=== PATIENT | female | born 1985 | race African-American/Black ===

== ENCOUNTER 2022-10-17 11:28 | Inpatient (IN) | payer MEDICAID ==
[~2022-10-17] VITALS: Ht 165.1 cm; Wt 172.7 kg
[~2022-10-17 11:28] MED LIST: ACET-2247 PO; AMLO10TA55 PO; CARV6.2534 PO; GABA600T10 PO; LORA10TA7 PO; MECL-160 PO; SPIR-37 PO
[2022-10-17] MEDS ORDERED: HALOPERIDOL 5 MG TABLET PO PRN (20:00)
[2022-10-17] MEDS ORDERED: LORazepam 2 MG TABLET PO PRN (20:00)
[2022-10-17] MEDS ORDERED: ZOLPIDEM TARTRATE 10 MG TABLET PO PRN (20:00)
[2022-10-17] MEDS ORDERED: HALOPERIDOL LACTATE 5 MG/ML VIAL IM ONE (22:45)
[2022-10-17] MEDS ORDERED: DiphenhydrAMINE HCL 50 MG/ML VIAL IM ONE (22:45)
[2022-10-17] MEDS ORDERED: LORazepam 2 MG/ML VIAL IM ONE (22:45)
[2022-10-17] MEDS ORDERED: LORazepam 2 MG/ML VIAL ONE (22:49)
[2022-10-17] MEDS ORDERED: DiphenhydrAMINE HCL 50 MG/ML VIAL ONE (22:49)
[2022-10-17] MEDS ORDERED: HALOPERIDOL LACTATE 5 MG/ML VIAL ONE (22:49)
[2022-10-17 22:50] VITALS: BP 162/97; PULSE 82; RESP 20; TEMP 98; O2SAT 95
[2022-10-17 23:50] VITALS: RESP 20
[2022-10-18] MEDS ORDERED: ChlorproMAZINE HCL 50 MG/2 ML AMP IM ONE (01:15)
[2022-10-18] MEDS ORDERED: DiphenhydrAMINE HCL 50 MG/ML VIAL IM ONE (01:15)
[2022-10-18 01:36] VITALS: BP 160/92; PULSE 81; RESP 20; TEMP 97.9; O2SAT 98
[2022-10-18 02:05] VITALS: BP 147/88; PULSE 103; RESP 18; TEMP 97.6; O2SAT 98
[2022-10-18] MEDS ORDERED: PNEUMOCOCCAL VACCINE POLYVALENT 0.5 ML VIAL [PPSV23] IM. ONE (03:45)
[2022-10-18] MEDS ORDERED: MAG HYDROX/AL HYDROX/SIMETH ES 30 ML SUSPENSION UDCUP PO PRN (05:15)
[2022-10-18] MEDS ORDERED: PETROLATUM,WHITE 28 GM JELLY TP PRN (05:15)
[2022-10-18] MEDS ORDERED: LOPERAMIDE HCL 2 MG CAPSULE PO PRN (05:15)
[2022-10-18] MEDS ORDERED: DOCUSATE SODIUM 100 MG CAPSULE PO PRN (05:15)
[2022-10-18] MEDS ORDERED: GuaiFENesin/D-METHORPHAN [SUGAR-FREE] 200-20MG/10 ML SYRUP UDCUP PO PRN (05:15)
[2022-10-18] MEDS ORDERED: CloNIDine HCL 0.1 MG TABLET PO PRN (05:15)
[2022-10-18] MEDS ORDERED: ONDANSETRON HCL 4 MG TABLET PO PRN (05:15)
[2022-10-18] MEDS ORDERED: MAGNESIUM HYDROXIDE SUSPENSION 30 ML UDCUP PO PRN (05:15)
[2022-10-18] MEDS ORDERED: ACETAMINOPHEN 325 MG TABLET PO PRN (05:15)
[2022-10-18] MEDS ORDERED: IBUPROFEN 400 MG TABLET PO PRN (05:15)
[2022-10-18] MEDS ORDERED: POTASSIUM CHLORIDE 20 MEQ ER TABLET PO ONE (08:00)
[2022-10-18 08:33] VITALS: BP 171/102; PULSE 80; RESP 18; TEMP 97.2; O2SAT 95
[2022-10-18] MEDS ORDERED: LEVOFLOXACIN 500 MG TABLET PO SCH (09:00)
[2022-10-18] MEDS ORDERED: CARVEDILOL 3.125 MG TABLET PO SCH (09:00)
[2022-10-18] MEDS ORDERED: AmLODIPine BESYLATE 10 MG TABLET PO SCH (09:00)
[2022-10-18] MEDS ORDERED: GABAPENTIN 300 MG CAPSULE PO SCH (09:00)
[2022-10-18] MEDS ORDERED: LEVO750T68 PO ×2 (10:09→11:20)
[2022-10-18] MEDS ORDERED: CARV6 PO (11:20)
[2022-10-18] MEDS ORDERED: AMLO-258 PO (11:20)
[2022-10-18] MEDS ORDERED: SPIRONOLACTONE 25 MG TABLET PO SCH (17:00)
== END 2022-10-18 12:08 | disposition left against medical advice (07) | DRG 751 ==
LOC: B3A 21:53
PROVIDERS: ADMIT Psychiatry & Neurology Child & Adolescent Psychiatry; ATTEND Psychiatry & Neurology Child & Adolescent Psychiatry
DX: F29 Unspecified psychosis not due to a substance or known physiological condition (principal); Z68.44 Body mass index [BMI] 60.0-69.9, adult; F10.10 Alcohol abuse, uncomplicated; Z53.21 Procedure and treatment not carried out due to patient leaving prior to being seen by health care provider; I10 Essential (primary) hypertension; F14.10 Cocaine abuse, uncomplicated; L03.119 Cellulitis of unspecified part of limb; E66.01 Morbid (severe) obesity due to excess calories; Z79.899 Other long term (current) drug therapy
CPT/HCPCS: 87081; J1200; J1630; J2060; J3230

== ENCOUNTER 2022-10-19 20:51 | Emergency (ER) | payer MEDICAID ==
[~2022-10-19] VITALS: Ht 167.6 cm; Wt 136.4 kg
[~2022-10-19 20:51] MED LIST changes: -ACET-2247 PO; +AMLO-258 PO; +CARV6 PO; +LEVO750T68 PO; -MECL-160 PO
[2022-10-19 21:04] VITALS: BP 141/99; PULSE 99; RESP 21; TEMP 98.2
[2022-10-19] MEDS ORDERED: KETOROLAC TROMETHAMINE 30 MG/ML VIAL IM ONE (22:15)
== END 2022-10-19 22:13 | disposition home or self-care (01) ==
LOC: EMS 20:52
DX: L03.115 Cellulitis of right lower limb (principal); R52 Pain, unspecified; I10 Essential (primary) hypertension; F20.9 Schizophrenia, unspecified; F12.90 Cannabis use, unspecified, uncomplicated; E66.01 Morbid (severe) obesity due to excess calories
CPT/HCPCS: 99283; 96372; J1885

== ENCOUNTER 2022-10-21 08:15 | Emergency (ER) | payer MEDICAID ==
[~2022-10-21] VITALS: Ht 175.3 cm; Wt 104.5 kg
[2022-10-21 08:50] VITALS: TEMP 98.3
[2022-10-21 10:48] VITALS: BP 132/80; PULSE 86; RESP 18
[2022-10-21] MEDS ORDERED: TRAZ-252 PO ×3 (18:14→23:33)
== END 2022-10-21 10:58 | disposition home or self-care (01) ==
LOC: EMS 08:18
DX: M79.662 Pain in left lower leg (principal); M79.661 Pain in right lower leg; I10 Essential (primary) hypertension; F20.9 Schizophrenia, unspecified; F43.10 Post-traumatic stress disorder, unspecified; E66.01 Morbid (severe) obesity due to excess calories; F12.90 Cannabis use, unspecified, uncomplicated
CPT/HCPCS: 99283; Z7502

== ENCOUNTER 2022-10-21 13:54 | Emergency (ER) | payer MEDICAID ==
[~2022-10-21] VITALS: Ht 170.2 cm; Wt 159.1 kg
[2022-10-21 14:07] VITALS: TEMP 97.9
[2022-10-21] MEDS ORDERED: TRAZ-252 PO ×3 (18:14→23:33)
[2022-10-21] MEDS ORDERED: TraMADol HCL 50 MG TABLET PO ONE (18:45)
[2022-10-21 18:48] VITALS: BP 148/84; PULSE 84; RESP 16
== END 2022-10-21 18:57 | disposition home or self-care (01) ==
LOC: EMS 13:57
DX: G47.00 Insomnia, unspecified (principal); L03.115 Cellulitis of right lower limb; I10 Essential (primary) hypertension; F20.9 Schizophrenia, unspecified; F12.90 Cannabis use, unspecified, uncomplicated
CPT/HCPCS: 99283

== ENCOUNTER 2022-10-22 13:33 | Inpatient (IN) | payer MEDICAID ==
[~2022-10-22] VITALS: Ht 165.1 cm; Wt 127.3 kg
[~2022-10-22 13:33] MED LIST changes: -AMLO-258 PO; -CARV6 PO; +TRAZ-252 PO
[2022-10-22 14:04] LABS: EOSINOPHILS % (AUTO) 0.3 % (1.0-6.0); HEMATOCRIT 36.7 % (36-46); HEMOGLOBIN 11.7 g/dL (12.0-16.0); LYMPHOCYTES # (AUTO) 3.6 K/uL (1.0-4.8); LYMPHOCYTES % (AUTO) 22.9 % (22.0-44.0); MEAN CORPUSCULAR HEMOGLOBIN 25.8 pg (26.0-34.0); MEAN CORPUSCULAR HGB CONC 31.9 G/dL (31.0-37.0); MEAN CORPUSCULAR VOLUME 81 fL (80-100); MONOCYTES # (AUTO) 1.3 K/uL (0.1-1.0); MONOCYTES % (AUTO) 8.3 % (2.0-9.0); NEUTROPHILS # (AUTO) 10.5 K/uL (1.8-7.7); NEUTROPHILS % (AUTO) 67.5 % (40.0-70.0); PLATELET COUNT (AUTO) 439 K/uL (150-450); RED BLOOD CELL COUNT(AUTO) 4.54 MIL/uL (4.00-5.20); RED CELL DISTRIBUTION WIDTH 16.2 % (11.5-14.5)
[2022-10-22 14:14] LABS: ANION GAP 7 mmol/L (8-16); CALCIUM, TOTAL 8.3 mg/dL (8.8-10.5); CARBON DIOXIDE 26 mmol/L (22-29); CHLORIDE 101 mmol/L (98-107); CREATININE 0.79 mg/dL (0.60-1.30); GLOMERULAR FILTR. RATE CALC > 60 mL/min (>60); GLUCOSE,RANDOM 120 mg/dL (70-110); POTASSIUM 3.7 mmol/L (3.5-5.1); SODIUM SERUM 134 mmol/L (136-145)
[2022-10-22 14:20] LABS: ALANINE AMINOTRANSFERASE 40 U/L (12-78); ALBUMIN 3.2 g/dL (3.4-5.0); ALKALINE PHOSPHATASE 66 U/L (46-116); ASPARTATE AMINOTRANSFERASE 30 U/L (15-37); BILIRUBIN,TOTAL 0.2 mg/dL (0.1-1.0); TOTAL PROTEIN, SERUM 7.2 g/dL (6.4-8.2)
[2022-10-22 14:48] LABS: AMPHET/METH SCREEN,URINE NEGATIVE (NEGATIVE); BARBITURATE SCREEN, URINE NEGATIVE (NEGATIVE); BENZODIAZEPINES SCREEN,URINE NEGATIVE (NEGATIVE); CANNABINOID SCREEN,URINE POSITIVE (NEGATIVE); COCAINE SCREEN,URINE NEGATIVE (NEGATIVE); METHADONE SCREEN, URINE NEGATIVE (NEGATIVE)
[2022-10-22 14:49] LABS: OPIATE SCREEN,URINE POSITIVE (NEGATIVE); PHENCYCLIDINE SCREEN,URINE NEGATIVE (NEGATIVE)
[2022-10-22] MEDS ORDERED: LORazepam 1 MG TABLET PO ONE (15:45)
[2022-10-22] MEDS ORDERED: ZOLPIDEM TARTRATE 10 MG TABLET PO PRN (15:45)
[2022-10-22] MEDS ORDERED: HALOPERIDOL 5 MG TABLET PO ONE (15:45)
[2022-10-22] MEDS ORDERED: DiphenhydrAMINE HCL 25 MG CAPSULE PO ONE ×2 (15:45→16:00)
[2022-10-22] MEDS: ACETAMINOPHEN 500 MG TABLET PO ONE (21:10)
[2022-10-23] MEDS: LORazepam 2 MG TABLET PO PRN (00:04)
[2022-10-23] MEDS: ACETAMINOPHEN 500 MG TABLET PO ONE (01:38)
[2022-10-23 03:08] LABS: COVID AG,FIA SOURCE NASOPHARYNGEAL
[2022-10-23] MEDS ORDERED: LEVOFLOXACIN 250 MG TABLET PO ONE (05:15)
[2022-10-23] MEDS ORDERED: SPIRONOLACTONE 25 MG TABLET PO ONE (05:15)
[2022-10-23] MEDS ORDERED: LORazepam 2 MG/ML VIAL IM ONE (08:30)
[2022-10-23] MEDS ORDERED: HALOPERIDOL LACTATE 5 MG/ML VIAL IM ONE (08:30)
[2022-10-23] MEDS ORDERED: DiphenhydrAMINE HCL 50 MG/ML VIAL IM ONE (08:30)
[2022-10-23] MEDS ORDERED: LORATADINE 10 MG TABLET PO PRN (11:15)
[2022-10-23] MEDS: AmLODIPine BESYLATE 10 MG TABLET PO SCH (11:57)
[2022-10-23] MEDS: CARVEDILOL 6.25 MG TABLET PO SCH ×2 (11:57→17:49)
[2022-10-23] MEDS: SPIRONOLACTONE 25 MG TABLET PO SCH (17:48)
[2022-10-23] MEDS: GABAPENTIN 300 MG CAPSULE PO SCH (17:48)
[2022-10-23] MEDS ORDERED: PETROLATUM,WHITE 28 GM JELLY TP PRN (20:45)
[2022-10-23] MEDS ORDERED: MAG HYDROX/AL HYDROX/SIMETH ES 30 ML SUSPENSION UDCUP PO PRN (20:45)
[2022-10-23] MEDS ORDERED: DOCUSATE SODIUM 100 MG CAPSULE PO PRN (20:45)
[2022-10-23] MEDS ORDERED: BACITRACIN 28 GM OINTMENT TP PRN (20:45)
[2022-10-23] MEDS ORDERED: ALBUTEROL SULFATE HFA 90 MCG/PUFF 8 GM INHALER IH PRN (20:45)
[2022-10-23] MEDS ORDERED: OMEPRAZOLE 20 MG CAPSULE PO PRN (20:45)
[2022-10-23] MEDS ORDERED: MAGNESIUM HYDROXIDE SUSPENSION 30 ML UDCUP PO PRN (20:45)
[2022-10-23] MEDS ORDERED: LOPERAMIDE HCL 2 MG CAPSULE PO PRN (20:45)
[2022-10-23] MEDS ORDERED: CloNIDine HCL 0.1 MG TABLET PO PRN (20:45)
[2022-10-23] MEDS ORDERED: BENZOCAINE/MENTHOL LOZENGE PO PRN (20:45)
[2022-10-23] MEDS: ACETAMINOPHEN 325 MG TABLET PO PRN (21:03)
[2022-10-23 21:11] VITALS: BP 137/89; PULSE 81; RESP 18; TEMP 98.1; O2SAT 97
[2022-10-23] MEDS: ONDANSETRON HCL 4 MG TABLET PO PRN ×2 (22:45→22:51)
[2022-10-24 08:06] VITALS: RESP 18
[2022-10-24] MEDS: AmLODIPine BESYLATE 10 MG TABLET PO SCH (08:06)
[2022-10-24] MEDS: ACETAMINOPHEN 325 MG TABLET PO PRN ×2 (08:06→13:02)
[2022-10-24] MEDS: GABAPENTIN 300 MG CAPSULE PO SCH ×3 (08:06→17:00)
[2022-10-24] MEDS: CARVEDILOL 6.25 MG TABLET PO SCH ×2 (08:06→17:00)
[2022-10-24] MEDS: LEVOFLOXACIN 750 MG TABLET PO SCH (08:06)
[2022-10-24] MEDS: SPIRONOLACTONE 25 MG TABLET PO SCH ×2 (08:06→17:00)
[2022-10-24 08:34] VITALS: BP 157/85; PULSE 87; RESP 18; TEMP 97.5; O2SAT 97
[2022-10-24 09:06] VITALS: RESP 18
[2022-10-24 13:02] VITALS: RESP 18
[2022-10-24 14:02] VITALS: RESP 18
[2022-10-24] MEDS ORDERED: ChlorproMAZINE HCL 50 MG/2 ML AMP IM ONE (16:45)
[2022-10-24] MEDS ORDERED: LORazepam 2 MG/ML VIAL IM ONE (16:45)
[2022-10-24] MEDS: QUEtiapine FUMARATE 200 MG TABLET PO SCH (17:00)
[2022-10-24] MEDS: LITHIUM CARBONATE 300 MG CAPSULE PO SCH (17:00)
[2022-10-24] MEDS: DIVALPROEX SODIUM 500 MG DR TABLET PO SCH (17:00)
[2022-10-24 20:23] VITALS: BP 129/76; PULSE 90; RESP 18; TEMP 97.6; O2SAT 98
[2022-10-25] VITALS (8 sets, daily range): BP systolic 118–140; BP diastolic 68–78; PULSE 80–90; RESP 15–19; TEMP 97.6–98; O2SAT 91–98
[2022-10-25] MEDS: ACETAMINOPHEN 325 MG TABLET PO PRN ×2 (03:14→21:30)
[2022-10-25] MEDS ORDERED: PNEUMOCOCCAL VACCINE POLYVALENT 0.5 ML VIAL [PPSV23] IM. ONE (04:15)
[2022-10-25] MEDS: LEVOFLOXACIN 750 MG TABLET PO SCH (08:01)
[2022-10-25] MEDS: GABAPENTIN 300 MG CAPSULE PO SCH ×3 (08:01→16:36)
[2022-10-25] MEDS: AmLODIPine BESYLATE 10 MG TABLET PO SCH (08:02)
[2022-10-25] MEDS: SPIRONOLACTONE 25 MG TABLET PO SCH ×2 (08:02→16:36)
[2022-10-25] MEDS: CARVEDILOL 6.25 MG TABLET PO SCH ×2 (08:02→16:36)
[2022-10-25] MEDS: DIVALPROEX SODIUM 500 MG DR TABLET PO SCH ×2 (08:21→16:43)
[2022-10-25] MEDS: LITHIUM CARBONATE 300 MG CAPSULE PO SCH ×2 (08:21→16:43)
[2022-10-25] MEDS: QUEtiapine FUMARATE 200 MG TABLET PO SCH ×2 (08:22→16:43)
[2022-10-25] MEDS: ONDANSETRON HCL 4 MG TABLET PO PRN (09:07)
[2022-10-25] MEDS: IBUPROFEN 600 MG TABLET PO PRN (16:36)
[2022-10-25] MEDS: DiphenhydrAMINE HCL 50 MG CAPSULE PO PRN (20:47)
[2022-10-26] MEDS: IBUPROFEN 600 MG TABLET PO PRN ×3 (02:34→22:27)
[2022-10-26] MEDS: HALOPERIDOL 5 MG TABLET PO PRN ×2 (03:04→22:27)
[2022-10-26] MEDS: LORazepam 2 MG TABLET PO PRN ×2 (03:04→22:27)
[2022-10-26] MEDS ORDERED: LORazepam 2 MG/ML VIAL IM ONE ×3 (04:30→16:15)
[2022-10-26] MEDS ORDERED: ChlorproMAZINE HCL 50 MG/2 ML AMP IM ONE ×2 (04:30→16:15)
[2022-10-26] MEDS ORDERED: DiphenhydrAMINE HCL 50 MG/ML VIAL IM ONE (08:00)
[2022-10-26] MEDS ORDERED: HALOPERIDOL LACTATE 5 MG/ML VIAL IM ONE (08:00)
[2022-10-26] MEDS: AmLODIPine BESYLATE 10 MG TABLET PO SCH (08:58)
[2022-10-26] MEDS: LEVOFLOXACIN 750 MG TABLET PO SCH (09:00)
[2022-10-26] MEDS: DIVALPROEX SODIUM 500 MG DR TABLET PO SCH ×2 (09:00→16:37)
[2022-10-26] MEDS: LITHIUM CARBONATE 300 MG CAPSULE PO SCH ×2 (09:00→16:37)
[2022-10-26] MEDS: SPIRONOLACTONE 25 MG TABLET PO SCH ×2 (09:00→16:32)
[2022-10-26] MEDS: CARVEDILOL 6.25 MG TABLET PO SCH ×2 (09:00→16:32)
[2022-10-26] MEDS: QUEtiapine FUMARATE 200 MG TABLET PO SCH ×2 (09:00→16:38)
[2022-10-26] MEDS: GABAPENTIN 300 MG CAPSULE PO SCH ×4 (09:00→16:33)
[2022-10-26 09:13] VITALS: BP 144/92; PULSE 93; RESP 18; TEMP 98; O2SAT 98
[2022-10-26 10:09] VITALS: RESP 18; O2SAT 98
[2022-10-26] MEDS: ACETAMINOPHEN 325 MG TABLET PO PRN (10:09)
[2022-10-26 11:09] VITALS: RESP 17
[2022-10-26 16:09] VITALS: BP 144/89; PULSE 91; RESP 18; TEMP 97.3; O2SAT 96
[2022-10-26] MEDS ORDERED: ChlorproMAZINE HCL 50 MG/2 ML AMP ONE (16:11)
[2022-10-26 17:09] VITALS: RESP 17
[2022-10-26 21:23] VITALS: RESP 18; TEMP 98; O2SAT 97
[2022-10-26] MEDS: DiphenhydrAMINE HCL 50 MG CAPSULE PO PRN (22:28)
[2022-10-27] MEDS: ACETAMINOPHEN 325 MG TABLET PO PRN ×3 (02:34→14:45)
[2022-10-27 02:35] VITALS: BP 127/82; RESP 18
[2022-10-27 03:35] VITALS: RESP 18; TEMP 98; O2SAT 98
[2022-10-27] MEDS ORDERED: LORazepam 2 MG/ML VIAL IM ONE (04:15)
[2022-10-27] MEDS ORDERED: ChlorproMAZINE HCL 50 MG/2 ML AMP IM ONE (04:15)
[2022-10-27 08:52] VITALS: BP 149/100; PULSE 100; RESP 16; TEMP 97.5; O2SAT 95
[2022-10-27] MEDS: LITHIUM CARBONATE 300 MG CAPSULE PO SCH ×2 (09:00→16:14)
[2022-10-27] MEDS: QUEtiapine FUMARATE 200 MG TABLET PO SCH ×2 (09:00→16:14)
[2022-10-27] MEDS: DIVALPROEX SODIUM 500 MG DR TABLET PO SCH ×2 (09:00→16:15)
[2022-10-27] MEDS: CARVEDILOL 6.25 MG TABLET PO SCH ×2 (09:03→16:10)
[2022-10-27] MEDS: SPIRONOLACTONE 25 MG TABLET PO SCH ×2 (09:03→16:11)
[2022-10-27] MEDS: AmLODIPine BESYLATE 10 MG TABLET PO SCH (09:05)
[2022-10-27] MEDS: GABAPENTIN 300 MG CAPSULE PO SCH ×3 (09:05→16:11)
[2022-10-27] MEDS: LEVOFLOXACIN 750 MG TABLET PO SCH (09:05)
[2022-10-27] MEDS ORDERED: QUET200T PO ×2 (11:33→11:37)
[2022-10-27] MEDS ORDERED: LITH300C3 PO (11:35)
[2022-10-27] MEDS ORDERED: DIVA-112 PO (11:35)
[2022-10-27] MEDS: DiphenhydrAMINE HCL 50 MG CAPSULE PO PRN (16:05)
== END 2022-10-27 17:24 | disposition home or self-care (01) | DRG 750 ==
LOC: EMS 13:36 → B3A 10-23 14:24 → B2S 10-24 17:54
PROVIDERS: ADMIT Psychiatry & Neurology Psychiatry; ATTEND Psychiatry & Neurology Psychiatry
DX: F25.9 Schizoaffective disorder, unspecified (principal); E28.2 Polycystic ovarian syndrome; F43.10 Post-traumatic stress disorder, unspecified; I10 Essential (primary) hypertension; G47.00 Insomnia, unspecified; K59.00 Constipation, unspecified; Z20.822 Contact with and (suspected) exposure to COVID-19; E66.01 Morbid (severe) obesity due to excess calories; F12.10 Cannabis abuse, uncomplicated; F41.9 Anxiety disorder, unspecified; F32.A Depression, unspecified; Z79.899 Other long term (current) drug therapy; Z68.42 Body mass index [BMI] 45.0-49.9, adult
CPT/HCPCS: 80053; 80307; 85025; 87081; G0480; J1200; J1630; J2060; J3230; Q0162; Q9967

== ENCOUNTER 2022-10-27 19:23 | Emergency (ER) | payer MEDICAID ==
[~2022-10-27 19:23] MED LIST changes: +DIVA-112 PO; +LITH300C3 PO; +QUET200T PO
== END 2022-10-27 23:14 | disposition left against medical advice (07) ==
LOC: EMS 19:24
DX: R44.3 Hallucinations, unspecified (principal); Z53.21 Procedure and treatment not carried out due to patient leaving prior to being seen by health care provider
CPT/HCPCS: 99281; Z7502

== ENCOUNTER 2023-06-20 20:29 | Emergency (ER) | payer MEDICAID ==
[~2023-06-20] VITALS: Ht 167.6 cm; Wt 220.0 kg
[~2023-06-20 20:29] MED LIST changes: -TRAZ-252 PO
[2023-06-20 20:59] VITALS: BP 180/100; PULSE 110; RESP 18; TEMP 98.7
== END 2023-06-20 21:35 | disposition left against medical advice (07) ==
LOC: EMS 20:31
DX: R06.02 Shortness of breath (principal); Z53.21 Procedure and treatment not carried out due to patient leaving prior to being seen by health care provider
CPT/HCPCS: 99281; Z7502

== ENCOUNTER 2023-07-01 22:07 | Emergency (ER) | payer MEDICAID ==
[~2023-07-01 22:07] MED LIST changes: +CELE-146 PO; +DULO-113 PO; +MECL-302 PO; +OMEP20CA12 PO
== END 2023-07-02 04:23 | disposition left against medical advice (07) ==
LOC: EMS 22:07
DX: Z53.21 Procedure and treatment not carried out due to patient leaving prior to being seen by health care provider (principal)

== ENCOUNTER 2023-07-02 08:50 | Emergency (ER) | payer MEDICAID ==
[~2023-07-02] VITALS: Ht 167.6 cm; Wt 115.9 kg
[2023-07-02 09:13] VITALS: BP 180/90; PULSE 88; RESP 18; TEMP 98.4
== END 2023-07-02 12:09 | disposition left against medical advice (07) ==
LOC: EMS 08:50
DX: M25.473 Effusion, unspecified ankle (principal); Z53.21 Procedure and treatment not carried out due to patient leaving prior to being seen by health care provider
CPT/HCPCS: 99281; Z7502

== ENCOUNTER 2023-07-02 13:48 | Emergency (ER) | payer MEDICAID ==
[~2023-07-02] VITALS: Ht 165.1 cm; Wt 136.4 kg
[2023-07-02 13:59] VITALS: BP 165/92; PULSE 100; RESP 18; TEMP 98.8
== END 2023-07-02 15:20 | disposition left against medical advice (07) ==
LOC: EMS 14:06
DX: N94.89 Other specified conditions associated with female genital organs and menstrual cycle (principal); M54.9 Dorsalgia, unspecified; R42 Dizziness and giddiness; Z53.21 Procedure and treatment not carried out due to patient leaving prior to being seen by health care provider
CPT/HCPCS: 99281; Z7502

== ENCOUNTER 2023-07-08 03:37 | Emergency (ER) | payer MEDICAID ==
[~2023-07-08] VITALS: Ht 167.6 cm; Wt 176.1 kg
[~2023-07-08 03:37] MED LIST changes: -LEVO750T68 PO
[2023-07-08 03:43] VITALS: BP 167/61; PULSE 99; RESP 20; TEMP 97.1
[2023-07-08] MEDS ORDERED: FURO-152 PO (03:57)
[2023-07-09] MEDS ORDERED: NAPR-1025 PO (06:43)
[2023-07-09] MEDS ORDERED: ALBU18HF12 PO (06:43)
[2023-07-09] MEDS ORDERED: GABA-1181 PO (06:43)
[2023-07-09] MEDS ORDERED: DOXY100C5 PO (06:43)
[2023-07-09] MEDS ORDERED: OLAN7.5T18 PO (06:43)
[2023-07-09] MEDS ORDERED: BACL5TAB PO (06:43)
[2023-07-09] MEDS ORDERED: PRED-554 PO (06:43)
[2023-07-09] MEDS ORDERED: CEPH500C2 PO (06:43)
== END 2023-07-08 04:00 | disposition home or self-care (01) ==
LOC: EMS 03:38 → MERGE 03:38 → EMS 04:00
DX: R60.0 Localized edema (principal); I10 Essential (primary) hypertension; F43.10 Post-traumatic stress disorder, unspecified; Z91.011 Allergy to milk products; Z76.0 Encounter for issue of repeat prescription
CPT/HCPCS: 99281; Z7502

== ENCOUNTER 2023-07-08 08:49 | Emergency (ER) | payer MEDICAID ==
[~2023-07-08] VITALS: Ht 167.6 cm; Wt 176.0 kg
[~2023-07-08 08:49] MED LIST changes: +FURO-152 PO
[2023-07-08 09:06] VITALS: BP 114/117; PULSE 99; RESP 20; TEMP 97.7
[2023-07-09] MEDS ORDERED: BACL5TAB PO (06:43)
[2023-07-09] MEDS ORDERED: PRED-554 PO (06:43)
[2023-07-09] MEDS ORDERED: OLAN7.5T18 PO (06:43)
[2023-07-09] MEDS ORDERED: DOXY100C5 PO (06:43)
[2023-07-09] MEDS ORDERED: NAPR-1025 PO (06:43)
[2023-07-09] MEDS ORDERED: ALBU18HF12 PO (06:43)
[2023-07-09] MEDS ORDERED: CEPH500C2 PO (06:43)
[2023-07-09] MEDS ORDERED: GABA-1181 PO (06:43)
== END 2023-07-08 09:18 | disposition home or self-care (01) ==
LOC: EMS 08:49
DX: R51.9 Headache, unspecified (principal); Z53.21 Procedure and treatment not carried out due to patient leaving prior to being seen by health care provider
CPT/HCPCS: 99281; Z7502

== ENCOUNTER 2023-07-09 06:23 | Emergency (ER) | payer MEDICAID ==
[~2023-07-09] VITALS: Ht 167.6 cm; Wt 172.0 kg
[2023-07-09 06:37] VITALS: BP 125/78; PULSE 85; RESP 18; TEMP 98.2
[2023-07-09] MEDS ORDERED: NAPR-1025 PO (06:43)
[2023-07-09] MEDS ORDERED: ALBU18HF12 PO (06:43)
[2023-07-09] MEDS ORDERED: PRED-554 PO (06:43)
[2023-07-09] MEDS ORDERED: BACL5TAB PO (06:43)
[2023-07-09] MEDS ORDERED: OLAN7.5T18 PO (06:43)
[2023-07-09] MEDS ORDERED: GABA-1181 PO (06:43)
[2023-07-09] MEDS ORDERED: DOXY100C5 PO (06:43)
[2023-07-09] MEDS ORDERED: CEPH500C2 PO (06:43)
[2023-07-09] MEDS: KETOROLAC TROMETHAMINE 60 MG/2 ML VIAL IM ONE (07:41)
[2023-07-09] MEDS: LORazepam 1 MG TABLET PO ONE (07:41)
== END 2023-07-09 08:16 | disposition home or self-care (01) ==
LOC: EMS 06:58 → MERGE 06:58 → EMS 08:16
DX: S29.012A Strain of muscle and tendon of back wall of thorax, initial encounter (principal); M79.671 Pain in right foot; I10 Essential (primary) hypertension; F12.90 Cannabis use, unspecified, uncomplicated; Z91.011 Allergy to milk products; Z88.8 Allergy status to other drugs, medicaments and biological substances; V89.2XXA Person injured in unspecified motor-vehicle accident, traffic, initial encounter; Y93.89 Activity, other specified; Y92.89 Other specified places as the place of occurrence of the external cause; Y99.8 Other external cause status
CPT/HCPCS: 99283; 73630; 96372; J1885

== ENCOUNTER 2023-07-12 12:17 | Inpatient (IN) | payer MEDICAID ==
[~2023-07-12] VITALS: Ht 167.6 cm; Wt 180.3 kg
[~2023-07-12 12:17] MED LIST changes: +ALBU18HF12 PO; +BACL5TAB PO; +CEPH500C2 PO; +DOXY100C5 PO; +GABA-1181 PO; +NAPR-1025 PO; +OLAN7.5T18 PO; +PRED-554 PO
[2023-07-12 14:34] LABS: EOSINOPHILS % (AUTO) 0.6 % (1.0-6.0); HEMATOCRIT 39.7 % (36-46); HEMOGLOBIN 12.4 g/dL (12.0-16.0); LYMPHOCYTES # (AUTO) 5.6 K/uL (1.0-4.8); LYMPHOCYTES % (AUTO) 34.6 % (22.0-44.0); MEAN CORPUSCULAR HEMOGLOBIN 23.5 pg (26.0-34.0); MEAN CORPUSCULAR HGB CONC 31.3 G/dL (31.0-37.0); MEAN CORPUSCULAR VOLUME 75 fL (80-100); MONOCYTES # (AUTO) 1.4 K/uL (0.1-1.0); MONOCYTES % (AUTO) 8.8 % (2.0-9.0); PLATELET COUNT (AUTO) 519 K/uL (150-450); RED BLOOD CELL COUNT(AUTO) 5.29 MIL/uL (4.00-5.20); RED CELL DISTRIBUTION WIDTH 17.4 % (11.5-14.5); WHITE BLOOD COUNT (AUTO) 16.3 K/uL (4.5-11.0)
[2023-07-12] MEDS ORDERED: OLAN7.5T22 PO (14:36)
[2023-07-12] MEDS ORDERED: FURO20 PO (14:36)
[2023-07-12] MEDS ORDERED: BACL10TA PO (14:36)
[2023-07-12] MEDS ORDERED: CYCL-448 PO (14:36)
[2023-07-12 14:48] LABS: ANION GAP 8 mmol/L (8-16); CALCIUM, TOTAL 8.5 mg/dL (8.8-10.5); CARBON DIOXIDE 30 mmol/L (22-29); CHLORIDE 103 mmol/L (98-107); CREATININE 0.75 mg/dL (0.60-1.30); GLOMERULAR FILTR. RATE CALC > 60 mL/min (>60); GLUCOSE,RANDOM 184 mg/dL (70-110); POTASSIUM 3.5 mmol/L (3.5-5.1); SODIUM SERUM 141 mmol/L (136-145); UREA NITROGEN, BLOOD 16 mg/dL (7-18)
[2023-07-12 14:50] LABS: ALANINE AMINOTRANSFERASE 50 U/L (12-78); ALBUMIN 3.3 g/dL (3.4-5.0); ALKALINE PHOSPHATASE 85 U/L (46-116); ASPARTATE AMINOTRANSFERASE 30 U/L (15-37); BILIRUBIN,TOTAL 0.3 mg/dL (0.1-1.0); TOTAL PROTEIN, SERUM 7.9 g/dL (6.4-8.2)
[2023-07-12] MEDS: KETOROLAC TROMETHAMINE 30 MG/ML VIAL IM ONE (14:54)
[2023-07-12 15:00] LABS: COVID AG,FIA SOURCE NASAL SWAB
[2023-07-12 15:11] LABS: ALCOHOL, BLOOD (SERUM) < 3 mg/dL (0-10)
[2023-07-12 15:32] LABS: SARS-COV2 (COVID) ANTIGEN,FIA Negative (Negative)
[2023-07-12 18:14] LABS: APPEARANCE,URINE CLEAR (CLEAR); BILIRUBIN,URINE NEGATIVE (NEGATIVE); COLOR,URINE LIGHT YELLOW (YELLOW); GLUCOSE, URINE (UA) NEGATIVE (NEGATIVE); KETONES,URINE NEGATIVE (NEGATIVE); LEUKOCYTE ESTERASE ,URINE NEGATIVE (NEGATIVE); NITRATE,URINE NEGATIVE (NEGATIVE); OCCULT BLOOD,URINE NEGATIVE (NEGATIVE); PROTEIN,URINE TRACE mg/dL (NEGATIVE); SPECIFIC GRAVITIY, URINE 1.025 (1.003-1.030); UROBILINOGEN,URINE <=1.0 mg/dL (<=1.0)
[2023-07-12 18:20] LABS: ALCOHOL, URINE DRUG SCREEN NEGATIVE (NEGATIVE); AMPHET/METH SCREEN,URINE NEGATIVE (NEGATIVE); BARBITURATE SCREEN, URINE NEGATIVE (NEGATIVE); BENZODIAZEPINES SCREEN,URINE NEGATIVE (NEGATIVE); CANNABINOID SCREEN,URINE POSITIVE (NEGATIVE); COCAINE SCREEN,URINE NEGATIVE (NEGATIVE); METHADONE SCREEN, URINE NEGATIVE (NEGATIVE); OPIATE SCREEN,URINE NEGATIVE (NEGATIVE); PHENCYCLIDINE SCREEN,URINE NEGATIVE (NEGATIVE)
[2023-07-12] MEDS: ACETAMINOPHEN 500 MG TABLET PO ONE (18:34)
[2023-07-12] MEDS: OLANZapine 5 MG TABLET PO ONE (23:03)
[2023-07-13] MEDS: ZOLPIDEM TARTRATE 10 MG TABLET PO PRN (00:23)
[2023-07-13] MEDS: LORazepam 2 MG TABLET PO PRN (00:23)
[2023-07-13] MEDS ORDERED: CYCLOBENZAPRINE HCL 10 MG TABLET ONE (02:38)
[2023-07-13] MEDS: CYCLOBENZAPRINE HCL 10 MG TABLET PO ONE ×2 (02:41→09:54)
[2023-07-13] MEDS: HALOPERIDOL 5 MG TABLET PO PRN (07:15)
[2023-07-13] MEDS: ACETAMINOPHEN 500 MG TABLET PO ONE (09:17)
[2023-07-13] MEDS: AmLODIPine BESYLATE 10 MG TABLET PO SCH (11:17)
[2023-07-13] MEDS: CEPHALEXIN MONOHYDRATE 500 MG CAPSULE PO SCH (11:18)
[2023-07-13] MEDS: CARVEDILOL 6.25 MG TABLET PO SCH (11:18)
[2023-07-13] MEDS: DOXYCYCLINE HYCLATE 100 MG TABLET PO SCH (11:18)
[2023-07-13] MEDS: FUROSEMIDE 20 MG TABLET PO SCH (11:18)
[2023-07-13] MEDS ORDERED: HALOPERIDOL 5 MG TABLET PO PRN (12:15)
[2023-07-13] MEDS ORDERED: BENZOCAINE/MENTHOL LOZENGE PO PRN (20:45)
[2023-07-13] MEDS ORDERED: MAGNESIUM HYDROXIDE SUSPENSION 30 ML UDCUP PO PRN (20:45)
[2023-07-13] MEDS ORDERED: ALBUTEROL SULFATE HFA 90 MCG/PUFF 8 GM INHALER IH PRN (20:45)
[2023-07-13] MEDS ORDERED: MAG HYDROX/ALUMINUM HYD/SIMETH ES 30 ML SUSPENSION UDCUP PO PRN (20:45)
[2023-07-13] MEDS ORDERED: BACITRACIN 28 GM OINTMENT TP PRN (20:45)
[2023-07-13] MEDS ORDERED: PETROLATUM,WHITE 28 GM JELLY TP PRN (20:45)
[2023-07-13] MEDS ORDERED: DOCUSATE SODIUM 100 MG CAPSULE PO PRN (20:45)
[2023-07-13 22:07] VITALS: RESP 18
[2023-07-13] MEDS: ACETAMINOPHEN 325 MG TABLET PO PRN (22:07)
[2023-07-14] MEDS: IBUPROFEN 600 MG TABLET PO PRN (00:57)
[2023-07-14 08:46] VITALS: BP 157/90; PULSE 92; RESP 19; TEMP 98.1; O2SAT 96
[2023-07-14] MEDS: GABAPENTIN 300 MG CAPSULE PO SCH (10:02)
[2023-07-14] MEDS ORDERED: MECLIZINE HCL 25 MG TABLET PO PRN (10:15)
[2023-07-14] MEDS ORDERED: LOPERAMIDE HCL 2 MG CAPSULE PO PRN (10:30)
[2023-07-14] MEDS ORDERED: LORATADINE 10 MG TABLET PO PRN (10:30)
[2023-07-14] MEDS: CELECOXIB 100 MG CAPSULE PO SCH (12:06)
[2023-07-14] MEDS: CARVEDILOL 6.25 MG TABLET PO SCH (12:06)
[2023-07-14] MEDS: BACLOFEN 10 MG TABLET PO SCH (14:09)
[2023-07-14] MEDS: LURASIDONE HCL 80 MG TABLET PO SCH (17:48)
[2023-07-14] MEDS: CYCLOBENZAPRINE HCL 10 MG TABLET PO SCH (21:13)
[2023-07-14 21:14] VITALS: BP 153/82; PULSE 86; RESP 18; TEMP 98; O2SAT 96
[2023-07-14 22:30] VITALS: PULSE 85; RESP 18; O2SAT 97
[2023-07-15 01:50] VITALS: BP 160/92; PULSE 96; RESP 2; RESP 20; TEMP 97.6; O2SAT 98
[2023-07-15] MEDS: KETOROLAC TROMETHAMINE 30 MG/ML VIAL IM PRN (01:55)
[2023-07-15 05:10] VITALS: BP 155/88; PULSE 83; RESP 18; TEMP 97.8; O2SAT 98
[2023-07-15] MEDS: TraMADol HCL 50 MG TABLET PO PRN (05:16)
[2023-07-15 06:16] VITALS: RESP 17
[2023-07-15] MEDS: OMEPRAZOLE 20 MG CAPSULE PO PRN (06:46)
[2023-07-15 07:03] LABS: BASOPHILS % (AUTO) 0.6 % (0.0-2.0); EOSINOPHILS % (AUTO) 0.7 % (1.0-6.0); HEMATOCRIT 36.9 % (36-46); HEMOGLOBIN 11.6 g/dL (12.0-16.0); LYMPHOCYTES # (AUTO) 5.2 K/uL (1.0-4.8); LYMPHOCYTES % (AUTO) 31.4 % (22.0-44.0); MEAN CORPUSCULAR HEMOGLOBIN 23.3 pg (26.0-34.0); MEAN CORPUSCULAR HGB CONC 31.4 G/dL (31.0-37.0); MEAN CORPUSCULAR VOLUME 74 fL (80-100); MONOCYTES % (AUTO) 5.8 % (2.0-9.0); NEUTROPHILS # (AUTO) 10.2 K/uL (1.8-7.7); NEUTROPHILS % (AUTO) 61.5 % (40.0-70.0); PLATELET COUNT (AUTO) 457 K/uL (150-450); RED BLOOD CELL COUNT(AUTO) 4.97 MIL/uL (4.00-5.20); RED CELL DISTRIBUTION WIDTH 17.5 % (11.5-14.5); WHITE BLOOD COUNT (AUTO) 16.7 K/uL (4.5-11.0)
[2023-07-15 07:30] LABS: ALANINE AMINOTRANSFERASE 53 U/L (12-78); ALBUMIN 3.1 g/dL (3.4-5.0); ALKALINE PHOSPHATASE 86 U/L (46-116); ANION GAP 10 mmol/L (8-16); ASPARTATE AMINOTRANSFERASE 34 U/L (15-37); BILIRUBIN,TOTAL 0.6 mg/dL (0.1-1.0); CALCIUM, TOTAL 8.3 mg/dL (8.8-10.5); CARBON DIOXIDE 24 mmol/L (22-29); CHLORIDE 99 mmol/L (98-107); GLOMERULAR FILTR. RATE CALC > 60 mL/min (>60); GLUCOSE,RANDOM 107 mg/dL (70-110); PHOSPHORUS 3.9 mg/dL (2.5-4.9); POTASSIUM 3.5 mmol/L (3.5-5.1); SODIUM SERUM 133 mmol/L (136-145); TOTAL PROTEIN, SERUM 7.5 g/dL (6.4-8.2); UREA NITROGEN, BLOOD 10 mg/dL (7-18)
[2023-07-15 07:35] LABS: CHOL/HDL RATIO 3.2 (3.9-5.7)
[2023-07-15 07:37] LABS: HEMOGLOBIN A1C 6.5 % (3.8-5.6)
[2023-07-15 10:58] LABS: RBC MORPHOLOGY COMMENT ABNORMAL RBC MORPH
[2023-07-15 11:10] VITALS: BP 166/89; PULSE 89; RESP 18; TEMP 97.3; O2SAT 98
[2023-07-15] MEDS ORDERED: CELE100 PO (15:42)
[2023-07-15] MEDS ORDERED: LURA80TA2 PO (15:48)
== END 2023-07-15 16:20 | disposition home or self-care (01) | DRG 750 ==
LOC: EMS 12:17 → 3EI 07-13 17:12
PROVIDERS: ADMIT Psychiatry & Neurology Psychiatry; ATTEND Psychiatry & Neurology Psychiatry
DX: F25.1 Schizoaffective disorder, depressive type (principal); R45.851 Suicidal ideations; L03.115 Cellulitis of right lower limb; E78.5 Hyperlipidemia, unspecified; G89.29 Other chronic pain; I10 Essential (primary) hypertension; F32.9 Major depressive disorder, single episode, unspecified; F41.9 Anxiety disorder, unspecified; K21.9 Gastro-esophageal reflux disease without esophagitis; Z20.822 Contact with and (suspected) exposure to COVID-19; G47.00 Insomnia, unspecified; L03.116 Cellulitis of left lower limb; K59.00 Constipation, unspecified; E66.01 Morbid (severe) obesity due to excess calories; Z68.44 Body mass index [BMI] 60.0-69.9, adult; Z79.899 Other long term (current) drug therapy
CPT/HCPCS: 80053; 80061; 80307; 81003; 83036; 83735; 84100; 84703; 85025; 87081; 94660; 99285; G0480; J1885

== ENCOUNTER 2023-11-23 01:04 | Emergency (ER) | payer MEDICAID ==
[~2023-11-23] VITALS: Ht 167.6 cm; Wt 165.0 kg
[~2023-11-23 01:04] MED LIST changes: -ALBU18HF12 PO; +BACL10TA PO; -BACL5TAB PO; -CELE-146 PO; +CELE100 PO; +CYCL-448 PO; -DIVA-112 PO; -DULO-113 PO; -FURO-152 PO; +FURO20 PO; -GABA-1181 PO; -LITH300C3 PO; -LORA10TA7 PO; +LURA80TA2 PO; -MECL-302 PO; -NAPR-1025 PO; -OLAN7.5T18 PO; -OMEP20CA12 PO; -PRED-554 PO; -QUET200T PO; -SPIR-37 PO
[2023-11-23 01:17] VITALS: TEMP 98.3
[2023-11-23] MEDS ORDERED: SULF-261 PO (01:45)
[2023-11-23] MEDS ORDERED: CELE200 PO (01:45)
[2023-11-23] MEDS ORDERED: HYDR-4527 PO (01:45)
[2023-11-23] MEDS: KETOROLAC TROMETHAMINE 60 MG/2 ML VIAL IM ONE (02:01)
[2023-11-23 05:30] VITALS: BP 137/75; PULSE 88; RESP 18
[2023-11-25] MEDS ORDERED: CARV12.530 PO (15:40)
== END 2023-11-23 06:14 | disposition home or self-care (01) ==
LOC: EMS 01:04
DX: L03.115 Cellulitis of right lower limb (principal); M54.31 Sciatica, right side; I10 Essential (primary) hypertension; F12.90 Cannabis use, unspecified, uncomplicated; Z91.011 Allergy to milk products; Z88.8 Allergy status to other drugs, medicaments and biological substances
CPT/HCPCS: 99283; 96372; J1885

== ENCOUNTER 2023-11-24 13:20 | Emergency (ER) | payer MEDICAID ==
[~2023-11-24] VITALS: Ht 162.6 cm; Wt 109.1 kg
[~2023-11-24 13:20] MED LIST changes: +CELE200 PO; +HYDR-4527 PO; +SULF-261 PO
[2023-11-24 13:34] VITALS: BP 137/95; PULSE 70; RESP 18; TEMP 98
[2023-11-24] MEDS: DEXAMETHASONE SOD PHOS 4 MG/ML 5 ML VIAL IM ONE (14:50)
[2023-11-25] MEDS ORDERED: CARV12.530 PO (15:40)
[2023-11-27] MEDS ORDERED: DOXY-354 PO (12:50)
[2023-11-27] MEDS ORDERED: MECL-302 PO (12:50)
[2023-11-27] MEDS ORDERED: OLAN5TAB52 PO (12:50)
== END 2023-11-24 15:14 | disposition home or self-care (01) ==
LOC: EMS 13:20
DX: L03.115 Cellulitis of right lower limb (principal); M54.31 Sciatica, right side; I10 Essential (primary) hypertension; F20.9 Schizophrenia, unspecified; F12.90 Cannabis use, unspecified, uncomplicated
CPT/HCPCS: 99283; 96372; J1100

== ENCOUNTER 2023-12-18 16:46 | Emergency (ER) | payer MEDICAID ==
[~2023-12-18] VITALS: Ht 165.1 cm; Wt 150.0 kg
[~2023-12-18 16:46] MED LIST changes: -AMLO10TA55 PO; -BACL10TA PO; +CARV12.530 PO; -CARV6.2534 PO; -CELE100 PO; +CEPH-558 PO; -CEPH500C2 PO; -CYCL-448 PO; +DOXY-354 PO; -DOXY100C5 PO; -FURO20 PO; -GABA600T10 PO; -LURA80TA2 PO; +MECL-302 PO; +OLAN5TAB52 PO; +ZOLP-162 PO
[2023-12-18 16:50] VITALS: TEMP 98
[2023-12-18 21:20] VITALS: BP 131/76; PULSE 72; RESP 18; O2SAT 99
[2023-12-18] MEDS ORDERED: ZIPRASIDONE HCL 40 MG CAPSULE PO ONE (22:45)
[2023-12-18] MEDS: LORazepam 1 MG TABLET PO ONE (23:35)
[2023-12-18] MEDS: ZIPRASIDONE HCL 20 MG CAPSULE PO ONE (23:36)
== END 2023-12-19 00:06 | disposition home or self-care (01) ==
LOC: EMS 16:48
DX: F25.1 Schizoaffective disorder, depressive type (principal); G47.00 Insomnia, unspecified; F41.9 Anxiety disorder, unspecified; I10 Essential (primary) hypertension; F12.90 Cannabis use, unspecified, uncomplicated; Z91.011 Allergy to milk products; Z88.6 Allergy status to analgesic agent
CPT/HCPCS: 99283

== ENCOUNTER → 2024-06-12 | Emergency (ER) | payer MEDICAID ==
[~2024-06-12] VITALS: Ht 167.6 cm; Wt 147.7 kg
[2024-06-12 02:25] VITALS: BP 144/105; PULSE 105; RESP 18; TEMP 98.7; O2SAT 98
== END | disposition left against medical advice (07) ==
LOC: EMS 02:19
DX: G47.00 Insomnia, unspecified (principal); Z53.21 Procedure and treatment not carried out due to patient leaving prior to being seen by health care provider

== ENCOUNTER 2024-06-22 04:01 | Emergency (ER) | payer MEDICAID ==
[~2024-06-22] VITALS: Ht 167.6 cm; Wt 147.7 kg
[2024-06-22 04:21] VITALS: TEMP 98.2
[2024-06-22 04:25] VITALS: BP 161/97; PULSE 80; RESP 18; O2SAT 100
[2024-06-22] MEDS: GABAPENTIN 300 MG CAPSULE PO ONE (04:47)
[2024-06-22] MEDS ORDERED: TRAZ-252 PO (04:59)
== END 2024-06-22 05:43 | disposition home or self-care (01) ==
LOC: EMS 04:02
DX: G89.29 Other chronic pain (principal); M79.604 Pain in right leg; M79.605 Pain in left leg; G47.00 Insomnia, unspecified; I10 Essential (primary) hypertension; F12.90 Cannabis use, unspecified, uncomplicated; F17.210 Nicotine dependence, cigarettes, uncomplicated; Z91.011 Allergy to milk products; Z79.1 Long term (current) use of non-steroidal anti-inflammatories (NSAID); Z79.899 Other long term (current) drug therapy
CPT/HCPCS: 99283

== ENCOUNTER → 2024-07-05 | Emergency (ER) | payer MEDICAID ==
[~2024-07-05] VITALS: Ht 167.6 cm; Wt 155.4 kg
[~2024-07-05] MED LIST changes: +TRAZ-252 PO
[2024-07-05 00:30] VITALS: BP 140/69; PULSE 82; RESP 20; TEMP 97.9; O2SAT 95
== END | disposition left against medical advice (07) ==
LOC: EMS 00:15
DX: M79.661 Pain in right lower leg (principal); Z53.21 Procedure and treatment not carried out due to patient leaving prior to being seen by health care provider

== ENCOUNTER 2024-07-10 12:44 | Emergency (ER) | payer MEDICARE, MEDICAID ==
[~2024-07-10] VITALS: Ht 167.6 cm; Wt 159.5 kg
[2024-07-10 12:56] VITALS: TEMP 98.3
[2024-07-10] MEDS: PANTOPRAZOLE SODIUM 40 MG DR TABLET PO ONE (13:33)
[2024-07-10 13:43] LABS: BASOPHILS % (AUTO) 0.3 % (0.0-2.0); HEMATOCRIT 35.6 % (36-46); HEMOGLOBIN 11.3 g/dL (12.0-16.0); LYMPHOCYTES # (AUTO) 2.7 K/uL (1.0-4.8); LYMPHOCYTES % (AUTO) 26.6 % (22.0-44.0); MEAN CORPUSCULAR HEMOGLOBIN 24.6 pg (26.0-34.0); MEAN CORPUSCULAR HGB CONC 31.8 G/dL (31.0-37.0); MEAN CORPUSCULAR VOLUME 77 fL (80-100); MONOCYTES # (AUTO) 1.1 K/uL (0.1-1.0); MONOCYTES % (AUTO) 10.5 % (2.0-9.0); NEUTROPHILS # (AUTO) 6.3 K/uL (1.8-7.7); NEUTROPHILS % (AUTO) 61.6 % (40.0-70.0); PLATELET COUNT (AUTO) 358 K/uL (150-450); RED CELL DISTRIBUTION WIDTH 16.9 % (11.5-14.5); WHITE BLOOD COUNT (AUTO) 10.2 K/uL (4.5-11.0)
[2024-07-10 13:52] LABS: ANION GAP 7 mmol/L (8-16); CALCIUM, TOTAL 7.3 mg/dL (8.8-10.5); CARBON DIOXIDE 28 mmol/L (22-29); CHLORIDE 103 mmol/L (98-107); CREATININE 0.66 mg/dL (0.60-1.30); GLOMERULAR FILTR. RATE CALC > 60 mL/min (>60); GLUCOSE,RANDOM 76 mg/dL (70-110); SODIUM SERUM 138 mmol/L (136-145); UREA NITROGEN, BLOOD 8 mg/dL (7-18)
[2024-07-10 13:53] LABS: APPEARANCE,URINE CLEAR (CLEAR); BILIRUBIN,URINE NEGATIVE (NEGATIVE); COLOR,URINE LIGHT YELLOW (YELLOW); GLUCOSE, URINE (UA) NEGATIVE (NEGATIVE); KETONES,URINE NEGATIVE (NEGATIVE); LEUKOCYTE ESTERASE ,URINE NEGATIVE (NEGATIVE); NITRATE,URINE NEGATIVE (NEGATIVE); OCCULT BLOOD,URINE NEGATIVE (NEGATIVE); PH,URINE 6.5 (5.0-8.0); PROTEIN,URINE NEGATIVE (NEGATIVE); SPECIFIC GRAVITIY, URINE 1.013 (1.003-1.030); UROBILINOGEN,URINE <=1.0 mg/dL (<=1.0)
[2024-07-10 13:58] LABS: ALBUMIN 2.7 g/dL (3.4-5.0); BILIRUBIN,DIRECT 0.1 mg/dL (0.00-0.20); BILIRUBIN,TOTAL 0.3 mg/dL (0.1-1.0); TOTAL PROTEIN, SERUM 6.3 g/dL (6.4-8.2)
[2024-07-10 14:03] LABS: HCG,QUANTITATIVE < 1 mIU/mL (0-6); LIPASE 43 U/L (16-77)
[2024-07-10 14:07] LABS: RBC MORPHOLOGY COMMENT ABNORMAL RBC MORPH
[2024-07-10] MEDS: SODIUM CHLORIDE 0.9% 1,000 ML IV ONE (14:21)
[2024-07-10 15:26] VITALS: BP 132/79; PULSE 84; RESP 18; O2SAT 97
== END 2024-07-10 16:01 | disposition home or self-care (01) ==
LOC: EMS 12:45
DX: A08.4 Viral intestinal infection, unspecified (principal); I10 Essential (primary) hypertension; F20.9 Schizophrenia, unspecified; Z79.1 Long term (current) use of non-steroidal anti-inflammatories (NSAID); Z91.011 Allergy to milk products; Z88.8 Allergy status to other drugs, medicaments and biological substances; Z79.899 Other long term (current) drug therapy
CPT/HCPCS: 99283; 96360; 80048; 80076; 81003; 83690; 84702; 85025; 36415; J7030